=== PATIENT | male | born 1975 | race Caucasian/White ===

== ENCOUNTER 2016-10-09 21:54 | Emergency (ER) | payer OTHER ==
[2005-10-19 17:29] VITALS: BP 106/74
[~2016-10-09] VITALS: Ht 172.7 cm; Wt 75.0 kg
[~2016-10-09 21:54] MED LIST: ADVAIR 500/28 DISKU1 IH; LEXAPRO20 MG PO; LORTAB 5/500 501 TAB PO; LORTAB 7.5/5001 TAB PO; PROVENTIL0.09 MG/A1 IH; SINGULAIR10 MG PO; XANAX1 MG PO; ZYRTEC10 MG PO
[2016-10-09 21:57] VITALS: BP 133/90; TEMP 97.6
[2016-10-09] MEDS ORDERED: ELIMITE TOP (23:45)
[2016-10-09 23:56] VITALS: PULSE 90
== END 2016-10-09 23:57 | disposition home or self-care (01) ==
LOC: COL.ER 21:54
DX: B85.2 Pediculosis, unspecified (principal)

== ENCOUNTER 2016-10-11 04:11 | Emergency (ER) | payer OTHER ==
[2005-10-19 17:29] VITALS: BP 106/74
[~2016-10-11] VITALS: Ht 172.7 cm; Wt 77.3 kg
[~2016-10-11 04:11] MED LIST changes: +ELIMITE TOP
[2016-10-11 04:18] VITALS: BP 131/84; TEMP 98.4
[2016-10-11 06:20] VITALS: PULSE 98
== END 2016-10-11 06:49 | disposition home or self-care (01) ==
LOC: COL.ER 04:11
DX: R21 Rash and other nonspecific skin eruption (principal); Z87.891 Personal history of nicotine dependence; Z85.47 Personal history of malignant neoplasm of testis; Z90.49 Acquired absence of other specified parts of digestive tract

== ENCOUNTER → 2016-12-16 | Outpatient (CLI) | payer SELFPAY | LOC: COL.RAD 13:12 | DX: R44.3 Hallucinations, unspecified (principal); R53.83 Other fatigue; Z85.9 Personal history of malignant neoplasm, unspecified | CPT/HCPCS: A9585 ==

== ENCOUNTER 2017-05-09 20:17 | Emergency (ER) | payer SELFPAY ==
[2005-10-19 17:29] VITALS: BP 106/74
[~2017-05-09] VITALS: Ht 172.7 cm; Wt 75.5 kg
[~2017-05-09 20:17] MED LIST changes: -ADVAIR 500/28 DISKU1 IH; +RT ADVAIR 528 DISKUS IH; +XANAX 1MG1 MG PO; -XANAX1 MG PO; +ZYRTEC 10MG10 MG PO; -ZYRTEC10 MG PO
[2017-05-09 20:21] VITALS: TEMP 98.2
[2017-05-09] MEDS ORDERED: SINGULAIR 110 MG/TAB PO (20:36)
[2017-05-09 20:56] LABS: BASO # 0.1 (0.0-0.2); EOS # 0.4 (0.0-0.7); EOS % 4.3 % (0-4.0); GRAN # 5.4 (1.4-6.5); GRAN % 52.5 % (42.2-75.2); HEMATOCRIT 44.5 % (42.0-52.0); HEMOGLOBIN 15.5 g/dl (13.5-18.0); LYMPH # 3.3 (1.2-3.4); MEAN CELL VOLUME 83 fl (80.0-100.0); MEAN CORPUSCULAR HEMOGLOBIN 29 pg (27.0-31.0); MEAN CORPUSCULAR HGB CONC 35 g/dl (33.0-37.0); MEAN PLATELET VOLUME 8.3 fl (7.4-10.4); MONO % 9.9 % (1.7-9.3); PLATELET COUNT 336 K/mm3 (130-400); RED BLOOD COUNT 5.35 M/mm3 (4.20-5.60); REDCELL DISTRIBUTION WIDTH-CV 12.2 % (11.5-14.5)
[2017-05-09 21:05] LABS: ALBUMIN 4.8 gm/dL (3.5-5.0); BILIRUBIN,TOTAL 0.7 mg/dL (0.0-1.0); CALCIUM 9.2 mg/dL (8.4-10.2); CREATININE, serum 1.1 mg/dL (0.66-1.25); TOTAL PROTEIN 7.9 gm/dL (6.4-8.2)
[2017-05-09 22:45] LABS: COLLECTION METHOD CLEAN CATCH
[2017-05-09 22:50] LABS: MUCOUS Present /lpf; PH 6 (5-8); SQUAMOUS EPITHELIAL None Seen /hpf; URINE APPEARANCE Clear; URINE BACTERIA None Seen /hpf; URINE BILIRUBIN Negative (NEGATIVE); URINE BLOOD Negative (NEGATIVE); URINE COLOR Yellow; URINE GLUCOSE Negative (NEGATIVE); URINE KETONE Negative (NEGATIVE); URINE LEUKOCYTE ESTERASE Negative (NEGATIVE); URINE NITRATE Negative (NEGATIVE); URINE PROTEIN(semi-quant) Negative (NEGATIVE); URINE RBC 0-2 /hpf; URINE UROBILINOGEN Negative (NEGATIVE)
[2017-05-09] MEDS ORDERED: NORCO 325 MG-51 TAB PO (23:06)
[2017-05-09 23:38] VITALS: BP 122/75; PULSE 101
== END 2017-05-09 23:33 | disposition home or self-care (01) ==
LOC: COL.ER 20:17
PROVIDERS: Emergency Medicine
DX: R10.9 Unspecified abdominal pain (principal); F41.9 Anxiety disorder, unspecified; Z85.47 Personal history of malignant neoplasm of testis; Z90.79 Acquired absence of other genital organ(s); Z98.890 Other specified postprocedural states; Z79.51 Long term (current) use of inhaled steroids
CPT/HCPCS: J2270; J7030; Q9967

== ENCOUNTER → 2018-06-13 | Outpatient (CLI) | payer OTHER ==
[~2018-06-13] MED LIST changes: +NORCO 325 MG-51 TAB PO; +SINGULAIR 110 MG/TAB PO
== END ==
LOC: COL.RAD 09:42
DX: R59.0 Localized enlarged lymph nodes (principal)

== ENCOUNTER 2019-07-25 18:52 | Emergency (ER) | payer OTHER ==
[2005-10-19 17:29] VITALS: BP 106/74
[~2019-07-25] VITALS: Ht 172.7 cm; Wt 81.8 kg
[2019-07-25 19:46] VITALS: BP 143/89; TEMP 98.4
[2019-07-25] MEDS ORDERED: FLEXERIL 1010 MG/TAB PO (22:52)
[2019-07-25] MEDS ORDERED: MOTRIN 800800 MG/TAB PO (22:52)
[2019-07-25 23:02] VITALS: PULSE 99
== END 2019-07-26 ==
LOC: COL.ER 18:52
DX: S02.5XXA Fracture of tooth (traumatic), initial encounter for closed fracture (principal); S16.1XXA Strain of muscle, fascia and tendon at neck level, initial encounter; S00.83XA Contusion of other part of head, initial encounter; J45.909 Unspecified asthma, uncomplicated; Z79.891 Long term (current) use of opiate analgesic; Y04.0XXA Assault by unarmed brawl or fight, initial encounter; Y99.0 Civilian activity done for income or pay
CPT/HCPCS: J1885